=== PATIENT | male | born 1995 | race Hispanic/Latino ===

== ENCOUNTER 2021-06-13 22:22 | Emergency (ER) | payer SELFPAY ==
[~2021-06-13] VITALS: Ht 175.3 cm; Wt 113.4 kg
[2021-06-13 22:58] LABS: BASOPHILS # (AUTO) 0.1 (0.0-0.1); BASOPHILS % 0.4 % (0.0-1.0); EOSINOPHILS # (AUTO) 0.2 (0.0-0.4); EOSINOPHILS % 1.5 % (0.0-6.0); HEMATOCRIT 47.5 % (38.2-49.6); HEMOGLOBIN 16.1 g/dL (14.0-18.0); LYMPHOCYTES # (AUTO) 0.8 (1.0-3.2); LYMPHOCYTES % 6.3 % (18.0-39.1); MEAN CORPUSCULAR HEMOGLOBIN 28.4 pg (28-32); MEAN CORPUSCULAR HGB CONC 33.9 g/dL (31-35); MEAN CORPUSCULAR VOLUME 83.9 fL (81-99); MONOCYTES # (AUTO) 0.5 (0.2-0.8); MONOCYTES % 3.9 % (4.4-11.3); NEUTROPHILS # (AUTO) 10.1 (2.1-6.9); NEUTROPHILS % 83.4 % (38.7-80.0); PLATELET COUNT 315 x10e3/uL (140-360); RED BLOOD COUNT 5.66 x10e6/uL (4.3-5.7); RED CELL DISTRIBUTION WIDTH 12.6 % (11.7-14.4)
[2021-06-13 23:14] LABS: ALBUMIN 3.4 g/dL (3.5-5.0); ANION GAP 19.4 mmol/L (8-16); CALCIUM 8.4 mg/dL (8.4-10.2); CREATININE, SERUM 0.99 mg/dL (0.72-1.25); POTASSIUM 3.4 mmol/L (3.5-5.1)
[2021-06-13] MEDS ORDERED: DEXAMETHASONE SOD PHOS 10 MG/1 ML VIAL ONE (23:16)
[2021-06-13] MEDS ORDERED: IBUPROFEN 600 MG TAB ONE (23:30)
[2021-06-13 23:38] LABS: CREATINE KINASE MB 2.2 ng/mL (0-5.0)
[2021-06-13] MEDS: IBUPROFEN 600 MG TAB PO STA (23:40)
[2021-06-13] MEDS: ACETAMINOPHEN 325 MG TAB PO ONE (23:44)
[2021-06-13] MEDS: CEFTRIAXONE 2 GM in SODIUM CHLORIDE 0.9% 100 ML IV SCH (23:44)
[2021-06-14] MEDS ORDERED: ASCORBIC ACID 500 MG TAB PO SCH (09:00)
[2021-06-14] MEDS ORDERED: ZINC SULFATE 220 MG CAP PO SCH (09:00)
[2021-06-19] MEDS ORDERED: DEXAMETHASONE SOD PHOS 10 MG/1 ML VIAL IV SCH (09:00)
== END 2021-06-14 04:15 | disposition short-term general hospital (02) ==
LOC: ER 22:29
DX: U07.1 COVID-19 (principal); J12.82 Pneumonia due to coronavirus disease 2019; R09.02 Hypoxemia; J98.2 Interstitial emphysema; G40.909 Epilepsy, unspecified, not intractable, without status epilepticus; D75.1 Secondary polycythemia
CPT/HCPCS: 36415; 71045; 71250; 80053; 82550; 82553; 84484; 85025; 87040; 99284; J0456; J0696; J1100; J7050 ×2; U0002